=== PATIENT | male | born 1975 | race African-American/Black ===

== ENCOUNTER 2018-01-06 14:16 | Emergency (ER) | payer OTHER ==
[~2018-01-06] VITALS: Ht 190.5 cm; Wt 98.0 kg
[2018-01-06] MEDS ORDERED: HYDROCODONE/APAP 7.5/325MG 1 TAB TABLET PO ONE (15:15)
[2018-01-06] MEDS ORDERED: ONDANSETRON HCL 4MG/2ML INJ IV STA (16:23)
[2018-01-06] MEDS ORDERED: MORPHINE SULFATE 4 MG/ML CPJ (NOT FOR IM USE) IV STA (16:23)
[2018-01-06 18:15] VITALS: BP 136/88
== END 2018-01-06 19:23 | disposition short-term general hospital (02) ==
LOC: ER 14:30
DX: S59.812A Other specified injuries left forearm, initial encounter (principal); V23.4XXA Motorcycle driver injured in collision with car, pick-up truck or van in traffic accident, initial encounter; Y93.89 Activity, other specified; Y92.488 Other paved roadways as the place of occurrence of the external cause
CPT/HCPCS: 73090; 73110; 73200; 96374; 96375; 99285; J2270; J2405; Z7610